=== PATIENT | female | born 1995 | race Caucasian/White ===

== ENCOUNTER 2016-02-29 07:32 | Emergency (ER) | payer BC ==
[2016-02-29 07:43] VITALS: BP 131/73
--- NOTE | 2016-02-29 07:52 | UC ---
Skin Complaint HPI - HPI Summary HPI Summary: NEW TATTOO NO HER RIGHT BREAST 3 DAYS AGO , THE AREA IS SORE , TENDER, MILD DISCHARGE NO FEVER, NO CHILLS - History of Current Complaint Chief Complaint: UCSkin Time Seen by Provider: 02/29/16 07:36 Stated Complaint: SKIN COMPLAINT Hx Obtained From: Patient Hx Last Menstrual Period: 01/30/16 ?: No Onset/Duration: Gradual Onset, Lasting Days - 3, Still Present Timing: Constant Onset Severity: Moderate Current Severity: Moderate Location: Discrete - RIGHT BREAST Character: Swelling, Pain, Redness, Raised, Painful Aggravating: Touch Alleviating: Nothing Associated Signs & Symptoms: Positive: Negative - Allergy/Home Medications Allergies/Adverse Reactions: Allergies Allergy/AdvReac Type Severity Reaction Status Date / Time No Known Allergies Allergy Verified 02/29/16 07:37 Home Medications: Home Medications Ibuprofen [Advil] 800 mg PO ONCE PRN 02/29/16 [History Confirmed 02/29/16] Review of Systems Constitutional: Negative Eyes: Negative ENT: Negative Respiratory: Negative Cardiovascular: Negative All Other Systems Reviewed And Are Negative: Yes PMH/Surg Hx/FS Hx/Imm Hx Previously Healthy: Yes - Surgical History Surgical History: None - Family History Known Family History: Positive: None Negative: Diabetes - Social History Alcohol Use: None Substance Use Type: None Smoking Status (MU): Former Smoker Have You Smoked in the Last Year: Yes When Did the Patient Quit Smoking/Using Tobacco: 07/06/15 Household Exposure Type: Cigarettes Physical Exam Triage Information Reviewed: Yes Appearance: Well-Appearing, No Pain Distress, Well-Nourished Vital Signs: Initial Vital Signs Temp 98.9 F 02/29/16 07:38 Pulse 95 02/29/16 07:38 Resp 16 02/29/16 07:38 BP 131/73 02/29/16 07:38 Pulse Ox 100 02/29/16 07:38 Vital Signs Reviewed: Yes Eyes: Positive: Conjunctiva Clear ENT: Positive: Normal ENT inspection, Hearing grossly normal, Pharynx normal Neck: Positive: Supple, Nontender, No Lymphadenopathy Respiratory: Positive: Chest non-tender, Lungs clear, Normal breath sounds Cardiovascular: Positive: RRR, No Murmur, Pulses Normal Skin: Positive: Other - + TATOO RIGHT BREATS , + MILD ERYTHEMA, SWOELLING, TENDER TO TOUCH, NO DISCHARGE Course/Dx - Diagnoses Provider Diagnoses: DERMATITIS RIGHT BREAST Discharge - Discharge Plan Condition: Stable Disposition: HOME Prescriptions: Mupirocin 2% OINT* [Bactroban 2 % Oint*] 1 applic TOPICAL BID #1 tube Patient Education Materials: Dermatitis (ED) Referrals: Da Wong MD [Primary Care Provider] - 7 Days
== END 2016-02-29 07:50 | disposition home or self-care (01) ==
LOC: UCCORT 07:32
DX: L30.9 Dermatitis, unspecified (principal); Z87.891 Personal history of nicotine dependence
CPT/HCPCS: 99212; G0463

== ENCOUNTER 2018-06-18 18:45 | Emergency (ER) | payer BC ==
[2018-06-18] MEDS ORDERED: Ketorolac INJ* 30 MG/ML 1 ML VIAL IV PUSH ONE (22:20)
[2018-06-18] MEDS ORDERED: diPHENhydraMINE IV* 50 MG/ML 1 ml VIAL (BENADRYL) IV ONE (22:20)
[2018-06-18] MEDS ORDERED: PROCHLORPERAZINE INJ 5 MG/ML 2 ML VIAL IV ONE (22:20)
[2018-06-18] MEDS ORDERED: NS 0.9% 1000 ML** 2,000 ML IV ONE (22:20)
--- NOTE | 2018-06-18 22:26 | ED ---
Headache - HPI Summary HPI Summary: A 23 y/o female presents to [facility] with a chief complaint of a headache for the past three days. She also reports nausea and feeling anxious. She claims that her headache is squeezing her temples. She notes that her headache is around her left ear. She got a piercing and has an earring in her left ear since 2-3 years ago. She is not bothered by light or sound and denies any visual problems. Her LNMP was a little over a month ago but reports that her periods are irregular and she denies chance of . She tried extra strength Tylenol. She has a Hx of migraines. - History Of Current Complaint Chief Complaint: EDHeadache Stated Complaint: HEADACHE PER PT Time Seen by Provider: 06/18/18 22:15 Hx Obtained From: Patient Hx Last Menstrual Period: 01/30/16 Onset/Duration: Sudden Onset, Started days ago, Still Present Initially Headache Was: Moderate Currently Pain Is: Current Pain Scale(0-10)= - 5, Moderate Timing: Constant Character: Migraine Location of Headache: Temporal Radiates to: none Aggravating Factor: Nothing Allevating Factors: Nothing Associated Signs And Symptoms: Negative - visual changes, Nausea - Allergies/Home Medications Allergies/Adverse Reactions: Allergies Allergy/AdvReac Type Severity Reaction Status Date / Time No Known Allergies Allergy Verified 06/18/18 18:50 PMH/Surg Hx/FS Hx/Imm Hx Sensory History: Denies: Hx Deafness EENT History: Denies: Hx Deafness Neurological History: Reports: Hx Migraine Infectious Disease History: No Infectious Disease History: Denies: Hx Clostridium Difficile, Hx Hepatitis, Hx Human Immunodeficiency Virus (HIV), Hx of Known/Suspected MRSA, Hx Shingles, Hx Tuberculosis, Hx Known/ Suspected VRE, Hx Known/Suspected VRSA, History Other Infectious Disease, Traveled Outside the [place] in Last 30 Days - Family History Known Family History: Negative: Diabetes - Social History Alcohol Use: Rare Substance Use Type: Reports: None Smoking Status (MU): Former Smoker Have You Smoked in the Last Year: Yes Review of Systems Negative: Fever Eyes: Negative - visual changes Negative: Photophobia, Blurred Vision Positive: Nausea Positive: Headache Positive: Anxious All Other Systems Reviewed And Are Negative: Yes Physical Exam - Summary Physical Exam Summary: Appearance: Well-appearing, Well-nourished, lying in bed comfortably Skin: Warm, dry, no obvious rash Eyes: sclera anicteric, no conjunctival pallor ENT: mucous membranes moist, pharynx appears normal Neck: Supple, nontender Respiratory: Clear to auscultation, no signs of respiratory distress Cardiovascular: Normal S1, S2. No murmurs. Normal distal pulses in tibial and radial bilaterally. Abdomen: Soft, nontender, normal active bowel sounds present Musculoskeletal: Normal, Strength/ROM Intact Neurological: A&Ox3, awake and alert, mentation is normal, speech is fluent and appropriate Psychiatric: affect is normal, does not appear anxious or depressed Triage Information Reviewed: Yes Vital Signs On Initial Exam: Initial Vitals Temp Pulse Resp BP Pulse Ox 98.0 F 88 18 140/100 100 06/18/18 18:47 06/18/18 18:47 06/18/18 18:47 06/18/18 18:47 06/18/18 18:47 Vital Signs Reviewed: Yes Diagnostics - Vital Signs Vital Signs Temp Pulse Resp BP Pulse Ox 06/18/18 21:42 98.7 F 82 14 123/84 99 06/18/18 18:47 98.0 F 88 18 140/100 100 - Laboratory Lab Statement: Any lab studies that have been ordered have been reviewed, and results considered in the medical decision making process. Re-Evaluation - Re-Evaluation First Eval Re-Evaluation Time: 01:12 Change: Improved Comment: VALENTINE is much better and wants to go home. Headache Course/Dx - Course Course Of Treatment: A 23 y/o female presents to [facility] with a chief complaint of a headache for the past three days. The physical exam was unremarkable. In the ED course the patient was given Sodium Chloride IV, Benadryl IV, Toradol IV and Compazine IV. Upon re-eval the patient reports that her headache is much better and that she wants to be discharged. She will be discharged home with prescriptions for Compazine and Imitrex and follow up with her PCP if needed. She is agreeable with this plan. - Diagnoses Provider Diagnoses: Migraine Discharge - Sign-Out/Discharge Documenting (check all that apply): Patient Departure - DC Patient Received Moderate/Deep Sedation with Procedure: No - Discharge Plan Condition: Improved Disposition: HOME Prescriptions: Prochlorperazine TAB* [Compazine Tab*] 10 mg PO Q6H PRN #6 tab PRN Reason: Headache SUMAtriptan TAB* [Imitrex TAB*] 50 mg PO SEE INSTRUCTIONS PRN #6 tab PRN Reason: Headache Patient Education Materials: Migraine Headache (ED) Forms: *Work Release Referrals: Da Wong MD [Primary Care Provider] - If Needed - Billing Disposition and Condition Condition: IMPROVED Disposition: Home - Attestation Statements Document Initiated by Scribe: Yes Documenting Scribe: Fareed Mullins Provider For Whom Aric is Documenting (Include Credential): Dany Spencer MD Scribe Attestation: IFareed, scribed for Dany Spencer MD on 06/22/18 at 0542. Scribe Documentation Reviewed: Yes Provider Attestation: The documentation as recorded by the Fareed edwards accurately reflects the service I personally performed and the decisions made by me, Dany Spencer MD Status of Scribe Document: Viewed
[2018-06-19 01:26] VITALS: BP 116/77
== END 2018-06-19 01:26 | disposition home or self-care (01) ==
LOC: ED 18:45
DX: G43.909 Migraine, unspecified, not intractable, without status migrainosus (principal); R11.0 Nausea; F41.9 Anxiety disorder, unspecified; Z87.891 Personal history of nicotine dependence
CPT/HCPCS: 96361; 96374; 96375; 99283; J0780; J1200; J1885

== ENCOUNTER 2019-03-11 11:47 | Emergency (ER) | payer SELFPAY ==
--- NOTE | 2019-03-11 12:39 | UC ---
FLU HPI - HPI Summary HPI Summary: 23 yo female presents with sinus symptoms. She tells me that for the past week she has been having sinus pain/pressure/congestion and a dry cough. She has been taking mucinex OTC with little relief. Has felt feverish, but has not taken her temperature. Denies sore throat, SOB, chest pain, rash, abdominal pain , n/v - History of Current Complaint Stated Complaint: COUGH CONGESTION Time Seen by Provider: 03/11/19 12:38 Hx Obtained From: Patient Hx Last Menstrual Period: 01/30/16 Onset/Duration: Gradual Onset Severity Currently: Moderate Severity Initially: Moderate Pain Intensity: 4 Pain Scale Used: 0-10 Numeric - Allergy/Home Medications Allergies/Adverse Reactions: Allergies Allergy/AdvReac Type Severity Reaction Status Date / Time No Known Allergies Allergy Verified 03/11/19 12:34 PMH/Surg Hx/FS Hx/Imm Hx Neurological History: Migraine - Surgical History Surgical History: None - Family History Known Family History: Positive: None Negative: Diabetes - Social History Lives: With Family Alcohol Use: Rare Substance Use Type: None Smoking Status (MU): Former Smoker Have You Smoked in the Last Year: Yes When Did the Patient Quit Smoking/Using Tobacco: 07/06/15 Household Exposure Type: Cigarettes Review of Systems All Other Systems Reviewed And Are Negative: No Constitutional: Positive: Fatigue, Other - Body aches Skin: Positive: Negative Eyes: Positive: Negative ENT: Positive: Nasal Discharge, Sinus Congestion, Sinus Pain/Tenderness Respiratory: Positive: Cough Cardiovascular: Positive: Negative Gastrointestinal: Positive: Negative Neurological: Positive: Negative Psychological: Positive: Negative Physical Exam - Summary Physical Exam Summary: GENERAL: NAD. WDWN. No pain distress. SKIN: No rashes, sores, lesions, or open wounds. HEENT: Head: AT/NC Eyes: EOM intact. Conjunctiva clear without inflammation or discharge. Ears: Hearing grossly normal. TMs intact, no bulging, erythema, or edema. Nose: Nasal mucosa mildly swollen and erythematous with yellow/ clear discharge. TTP maxillary and frontal sinus. Positive post nasal drip Throat: Posterior oropharynx without exudates, erythema, or tonsillar enlargement. Uvula midline. NECK: Supple. Nontender. No lymphadenopathy. CHEST: CTAB. No r/r/w. No accessory muscle use. Breathing comfortably and in no distress. CV: RRR. Pulses intact. NEURO: Alert. PSYCH: Age appropriate behavior. Triage Information Reviewed: Yes Vital Signs: Vital Signs: Temp Pulse Resp BP Pulse Ox 99.1 F 98 20 125/80 100 03/11/19 12:35 03/11/19 12:35 03/11/19 12:35 03/11/19 12:35 03/11/19 12:35 Vital Signs Reviewed: Yes Flu Course/Dx - Course Course Of Treatment: Sinusitis. - Differential Dx/Diagnosis Provider Diagnosis: Sinusitis Discharge ED - Sign-Out/Discharge Documenting (check all that apply): Patient Departure All imaging exams completed and their final reports reviewed: No Studies - Discharge Plan Condition: Stable Disposition: HOME Prescriptions: Amoxicillin PO (*) [Amoxicillin 875 MG (*)] 875 mg PO BID #14 tab Benzonatate CAP* [Tessalon 100 MG CAP*] 100 mg PO TID PRN #21 cap PRN Reason: Cough Patient Education Materials: Sinusitis (ED) Forms: *Work Release Referrals: Da Wong MD [Primary Care Provider] - Additional Instructions: If you develop a fever, shortness of breath, chest pain, new or worsening symptoms - please call your PCP or go to the ED immediately. - Billing Disposition and Condition Condition: STABLE Disposition: Home
[2019-03-11 12:43] VITALS: BP 125/80
[2019-03-11 13:01] LABS: Influenza A Molecular NEGATIVE (Negative); Influenza B Molecular NEGATIVE (Negative)
== END 2019-03-11 13:02 | disposition home or self-care (01) ==
LOC: UCCORT 11:47
DX: J32.9 Chronic sinusitis, unspecified (principal); R53.83 Other fatigue; Z87.891 Personal history of nicotine dependence
CPT/HCPCS: 99212; G0463